=== PATIENT | male | born 1945 | race Caucasian/White ===

== ENCOUNTER 2021-10-24 07:31 | Day surgery (SDC) | payer OTHER, MEDICARE ==
[2021-10-17 15:00] VITALS: BMI 29.0
[2021-10-24] MEDS ORDERED: PROPOFOL 20 ML ONE ×2 (07:39)
[2021-10-24] MEDS ORDERED: LIDOCAINE HCL/PF 2% SDV 5ML VIAL ONE (07:39)
[2021-10-24 08:04] VITALS: TEMP 97.3
[2021-10-24 08:53] VITALS: BP 122/70; PULSE 75
== END 2021-10-24 09:05 | disposition home or self-care (01) ==
LOC: FASU-ENDO 07:31
PROVIDERS: ATTEND Internal Medicine Gastroenterology
PROC: 0DBP8ZX Excision of Rectum, Via Natural or Artificial Opening Endoscopic, Diagnostic (ICD-10-PCS; principal; 2021-10-24 08:20)
DX: Z12.11 Encounter for screening for malignant neoplasm of colon (principal); D12.8 Benign neoplasm of rectum; Z86.010 Personal history of colon polyps
CPT/HCPCS: 88305-TC